=== PATIENT | female | born 1950 | race Caucasian/White ===

== ENCOUNTER 2020-02-03 09:55 | Day surgery (SDC) | payer MEDICARE, MEDICAID ==
[~2020-02-03 09:55] MED LIST: BUPIVACAINE HCL 0.5 % INJ/PF 30 ML SDV ONE; CEFAZOLIN 2 GM/D5W RTU 2 GM/50 ML RTUPB IV PRN; LIDOCAINE 1% INJ-PF (10 MG/ML) 30 ML SDV ONE; ONDANSETRON HCL INJ/PF 4 MG/2 ML SDV ONE
[2020-02-03 10:35] LABS: ABSOLUTE BASOPHILS # (AUTO) 0.1 10^3/uL (0.0-0.2); ABSOLUTE EOSINOPHILS # (AUTO) 0.3 10^3/uL (0.0-0.6); ABSOLUTE LYMPHOCYTES (AUTO) 2.4 10^3/uL (0.5-4.7); ABSOLUTE MONOCYTES (AUTO) 0.5 10^3/uL (0.1-1.4); ABSOLUTE NEUT (AUTO) 6.3 10^3/uL (1.7-8.2); BASOPHILS % (AUTO) 0.9 % (0-2); HEMATOCRIT 38.3 % (36.0-47.0); HEMOGLOBIN 12.8 g/dL (12.0-15.5); LYMPHOCYTES % (AUTO) 24.7 % (13-45); MEAN CORPUSCULAR HEMOGLOBIN 27.9 pg (27.0-33.4); MEAN CORPUSCULAR HGB CONC 33.4 g/dL (32.0-36.0); MEAN CORPUSCULAR VOLUME 84 fl (80-97); MONOCYTES % (AUTO) 5.3 % (3-13); PLATELET COUNT 329 10^3/uL (150-450); RED BLOOD COUNT 4.58 10^6/uL (3.72-5.28); RED CELL DISTRIBUTION WIDTH 15.2 % (11.5-14.0); SEGMENTED NEUTROPHILS % (AUTO) 66.1 % (42-78); TOTAL CELLS COUNTED % (AUTO) 100 %; WHITE BLOOD COUNT 9.5 10^3/uL (4.0-10.5)
[2020-02-03] MEDS ORDERED: CEFAZOLIN 2 GM/D5W RTU 2 GM/50 ML RTUPB IV ONE (10:54)
[2020-02-03 11:00] LABS: ANION GAP 8 (5-19); BLOOD UREA NITROGEN 17 mg/dL (7-20); CALCIUM 10.1 mg/dL (8.4-10.2); CARBON DIOXIDE 25 mmol/L (22-30); CHLORIDE 103 mmol/L (98-107); GLUCOSE 135 mg/dL (75-110); POTASSIUM 4.2 mmol/L (3.6-5.0)
[2020-02-03] MEDS ORDERED: LIDOCAINE 2% INJ-PF (20 MG/ML) 10 ML AMPUL ONE (11:38)
[2020-02-03] MEDS ORDERED: FENTANYL CITRATE INJ/PF 100 MCG/2 ML AMPUL ONE (11:38)
[2020-02-03] MEDS ORDERED: MIDAZOLAM 2 MG/2 ML INJ ONE (11:38)
[2020-02-03] MEDS ORDERED: PROPOFOL INJ 200 MG/20 ML VIAL IV ONE (11:39)
--- NOTE | 2020-02-03 11:45 | RADIOLOGY REPORT (SQ) ---
EXAM DESCRIPTION: CHEST SINGLE VIEW IMAGES COMPLETED DATE/TIME: 02/03/2020 10:44 am REASON FOR STUDY: PRE OP COMPARISON: None. EXAM PARAMETERS: NUMBER OF VIEWS: One view. TECHNIQUE: An AP view of the chest was obtained. RADIATION DOSE: NA LIMITATIONS: None. FINDINGS: LUNGS AND PLEURA: Atelectatic opacities in the inferior aspect of the left hemithorax. Th ere is no consolidation, pleural effusion or pneumothorax. MEDIASTINUM AND HILAR STRUCTURES: No mediastinal or hilar contour abnormality. HEART AND VASCULAR STRUCTURES: The cardiac silhouette is enlarged. BONES: No acute findings. HARDWARE: None in the chest. OTHER: No other finding. IMPRESSION: Cardiomegaly without a superimposed acute cardiopulmonary process. TECHNICAL DOCUMENTATION: JOB ID: [id number] 2010 [employer]- All Rights Reserved Reading location - IP/workstation name: [email or web address]
[2020-02-03] MEDS ORDERED: ONDANSETRON HCL INJ/PF 4 MG/2 ML SDV IV PRN (12:34)
[2020-02-03] MEDS ORDERED: FENTANYL CITRATE INJ/PF 100 MCG/2 ML AMPUL IV PRN ×4 (12:34→12:43)
[2020-02-03] MEDS ORDERED: HYDROCODONE/ACETAMINOPHEN 5-325 MG TABLET PO PRN (12:34)
--- NOTE | 2020-02-03 12:35 | Discharge Summary ---
Discharge Summary (SDC) - Discharge Final Diagnosis: Left thumb laceration Date of Surgery: 02/03/20 Discharge Date: 02/03/20 Forms: ASU Anesthesia D/C Instruction, Discharge POC-Surgical Service Treatment or Instructions: Schedule Follow Up w/ Dr. Jeancarlos Pizarro @ [facility] to be seen in 10-14 days or as scheduled [place]: [place]: [place]: Ice and elevate Keep splint clean/dry/intact, do not remove. If your fingers become numb please unwrap the [place] wrap but leave the splint in place, if the sensation does not return within 30 minutes please return to the emergency department. May begin finger range of motion attempting to make full fist. Please use ibuprofen (Motrin or Advil) 600-800 mg every 8 hours as needed for pain or fever DO NOT TAKE w/ TORADOL may use once TORADOL complete. You may also use acetaminophen (Tylenol) 1000 mg every 4-6 hours as needed for pain or fever. Please be aware that many medications contain acetaminophen, do not exceed a total of 1000 mg of acetaminophen every 6 hours. If ibuprofen and acetaminophen are not sufficient for your pain you may take the Percocet/[place]. Please be aware that the Percocet/[place] does contain Tylenol. Stool softener of choice when on pain medication. USE OF MOFZ-PDB-HOSNVIR IBUPROFEN: Ibuprofen (Advil, Nuprin, Medipren, Motrin IB) is a medication for fever and pain control. In addition, it has anti- inflammatory effects which may be beneficial, especially in the treatment of injuries. It's best to take ibuprofen with food. Persons with ulcer disease or allergy to aspirin should notify their physician of this before taking ibuprofen. Ibuprofen can be given every four to six hours, for a total of four doses daily. Age Pain or fever dose Antiinflammatory dose 6-8 yr 200 mg (1 tab) 200 mg (1 tab) 9-11 yr 200 mg (1 tab) 200-400 mg (1-2 tab) 11-14 yr 200-400 mg (1-2 tab) 400 mg (2 tab) 15-adult 400 mg (2 tab) 600 mg (3 tab) ORAL NARCOTIC MEDICATION: You have been given a prescription for pain control. This medication is a narcotic. It's best taken with food, as nausea can result if taken on an empty stomach. Don't operate machinery or drive within six hours of taking this medication. Do not combine this medicine with alcohol, or with any medication which can cause sedation (such as cold tablets or sleeping pills) unless you get permission from the physician. Narcotics tend to cause constipation. If possible, drink plenty of fluids and eat a diet high in fiber and fruits. Please be aware that prescription narcotics also have the potential for abuse. People become addicted to these medications because of the general sense of wellbeing that they induce. This feeling along with a significant reduction in tension, anxiety, and aggression provides a stimulating seductive quality to these drugs. Once your pain is under control, we encourage you to discard your unused narcotics. Prescriptions: Hydrocodone/Acetaminophen [[place] 5-325 mg Tablet] 1 tab PO Q6 PRN #20 tablet PRN Reason: Referrals: JEANCARLOS PIZARRO DO [ACTIVE STAFF] - Discharge Diet: As Tolerated Respiratory Treatments at Home: Deep Breathing/Coughing Discharge Activity: No Lifting Over 10 Pounds, No Lifting/Push/Pulling Report the Following to Your Physician Immediately: Fever over 101 Degrees, Unusual Bleeding, Redness, Swelling, Warmth, Increased Soreness
--- NOTE | 2020-02-03 12:38 | Operative Report ---
Operative Report DATE OF SURGERY: 02/03/20 PREOPERATIVE DIAGNOSIS: Left thumb laceration POSTOPERATIVE DIAGNOSIS: Left thumb extensor tendon laceration OPERATION: left thumb repair EPL laceration Zone II/III SURGEON: MARY JO PIZARRO ANESTHESIA: LMAC COMPLICATIONS: None ESTIMATED BLOOD LOSS: Minimal PROCEDURE: Indication for above procedure: 69-year-old female presented to the office after sustaining a laceration to her hand when she cut it on a glass 01/25/2020. Patient was seen at the office at which point findings were consistent with extensor tendon laceration. We discussed treatment options including operative versus nonoperative intervention I discussed risk and benefits joint decision was made to proceed with operative intervention. Procedure In Detail: Patient was seen and evaluated in the preoperative holding area. The LEFT upper extremity was initialized and marked. Patient received 2g of Ancef IV for bacterial prophylaxis. Patient was taken back to the operative room where transferred to the operative table. Once they were adequately anesthetized a nonsterile tourniquet was placed on the upper extremity. A surgical team debriefing was performed ensuring all instrumentation was available, the surgical procedure was discussed with possible concerns reviewed. A digital block was performed utilizing 15 mL of 1% lidocaine without epinephrine. The upper extremity was prepped with chlorhexidine and alcohol and draped in a sterile fashion. A timeout was done identifying correct patient, procedure and extremity everyone in attendance agree with this and verbalized no concerns. The extremity was exsanguinated the tourniquet was inflated to 250 mmHg. Longitudinal laceration was then opened and extended proximally and distally. Blunt dissection was performed. Small branches of the superficial nerve were identified and retracted. Full laceration of the EPL tendon was noted with intact partial involvement of EPB tendon at the level of the MCP joint extending just proximal to the MCP joint within zone III/IV. Nonviable tissue was debrided and proximal distal aspect of the EPL tendon was exposed. Laceration extended transversely and then obliquely involving small portion of the EPB tendon. Tendon was repaired with a running Silverskiold suture utilizing 4-0 FiberWire. It was then reinforced with 3 additional [id number] sutures with [id number] sutures to the EPB distally at the level of the MCP joint. Any small peripheral veins were coagulated with bipolar cautery. Wound was co piously irrigated with normal saline. Skin was closed with interrupted 4-0 nylon suture. Wound was dressed with Xeroform for fours and soft dressing, 4 x 4's patient was placed in a thumb spica splint with the wrist at 20 degrees of extension IP/MP joints at neutral extension 10 degrees hyperextension at the IP joint and 0 degrees at the MCP joint. Sponge counts, instrument counts, needle counts counts were correct. Patient was then awoken from anesthesia. Transferred from the operating room table to the operating room stretcher. There was no intraoperative complications patient tolerated procedure well stable to PACU. Postoperative plan: Patient will follow-up as scheduled for wound check. Patient will begin therapy 5-7 days postoperatively as per extensor tendon repair protocol zone III and be fitted for a thermoplastic splint.
[2020-02-03] MEDS ORDERED: PROMETHAZINE HCL INJ 25 MG/1 ML VIAL IV PRN ×2 (12:43)
[2020-02-03] MEDS ORDERED: DIPHENHYDRAMINE HCL 50 MG/ML VIAL IV PRN (12:43)
[2020-02-03] MEDS ORDERED: OXYCODONE-ACETAMINOPHEN 5-325 MG TABLET PO PRN ×2 (12:43)
[2020-02-03] MEDS ORDERED: MEPERIDINE HCL/PF INJ 25 MG/1 ML DISP.SYRIN IV PRN (12:43)
[2020-02-03] MEDS ORDERED: MORPHINE SULFATE 10 MG/ML INJ IV PRN (12:43)
[2020-02-03 14:34] VITALS: BP 101/54
--- NOTE | 2020-02-04 00:23 | EKG REPORT ---
SEVERITY:- ABNORMAL ECG - SINUS RHYTHM LEFT AXIS DEVIATION LEFT VENTRICULAR HYPERTROPHY : Confirmed by: Tarun Reed 04-Feb-2020 00:22:52
== END 2020-02-03 14:20 | disposition home or self-care (01) ==
LOC: OROUT 09:55
PROVIDERS: ATTEND Orthopaedic Surgery
DX: S66.222A Laceration of extensor muscle, fascia and tendon of left thumb at wrist and hand level, initial encounter (principal); S61.012A Laceration without foreign body of left thumb without damage to nail, initial encounter; W25.XXXA Contact with sharp glass, initial encounter; M79.645 Pain in left finger(s); I10 Essential (primary) hypertension; E78.00 Pure hypercholesterolemia, unspecified; E11.9 Type 2 diabetes mellitus without complications; G47.33 Obstructive sleep apnea (adult) (pediatric); Z86.718 Personal history of other venous thrombosis and embolism; Z79.01 Long term (current) use of anticoagulants; Z86.73 Personal history of transient ischemic attack (TIA), and cerebral infarction without residual deficits; Z79.82 Long term (current) use of aspirin; Z79.899 Other long term (current) drug therapy; Z79.84 Long term (current) use of oral hypoglycemic drugs; Z88.5 Allergy status to narcotic agent; Z03.818 Encounter for observation for suspected exposure to other biological agents ruled out
CPT/HCPCS: 36415; 85025; 80048; 71045; 26418; U0003; J2250; J3490 ×2; J2704; J0690; C9803; 1810; 87635; 93005; 93010; J2405; J3010